=== PATIENT | male | born 1960 | race Hispanic/Latino ===

== ENCOUNTER 2017-03-01 06:39 | Inpatient (IN) | payer OTHER ==
[2017-03-01 07:43] LABS: Basophils % (Auto) 0.5 % (0.0-1.8); Eosinophils % (Auto) 1.8 % (0.0-4.3); Hematocrit 45.1 % (35.5-45.6); Hemoglobin 15.4 gm/dl (11.8-15.2); Mean Corpuscular HGB Conc 34 % (32-34); Mean Corpuscular Hemoglobin 29 pg (28-32); Mean Corpuscular Volume 84 fl (84-94); Platelet Count 236 K/mm3 (140-440); Red Blood Count 5.37 M/mm3 (3.65-5.03); Red Cell Distribution Width 12.8 % (13.2-15.2); White Blood Count 11.1 K/mm3 (4.5-11.0)
[2017-03-01 07:50] LABS: Anion Gap 19 mmol/L; BUN/Creatinine Ratio 23; Blood Urea Nitrogen 21 mg/dL (9-20); Calcium 9.1 mg/dL (8.4-10.2); Carbon Dioxide 24 mmol/L (22-30); Chloride 98.7 mmol/L (98-107); Glucose 124 mg/dL (75-100); Potassium 4.2 mmol/L (3.6-5.0); Sodium 137 mmol/L (137-145)
[2017-03-01] MEDS ORDERED: BENADRYL IV ONE (11:00)
[2017-03-01] MEDS ORDERED: REGLAN IV ONE (11:00)
[2017-03-01] MEDS ORDERED: TORADOL IV ONE (11:00)
--- NOTE | 2017-03-01 11:05 | Emergency Department Report ---
ED Syncope HPI - General Chief Complaint: Chest Pain Stated Complaint: CP Time Seen by Provider: 03/01/17 10:46 Source: patient, old records (no previous record for review) Exam Limitations: no limitations - History of Present Illness Initial Comments: 56-year-old male with a past history of migraines, GERD, hypertension, previous cholecystectomy presents to hospital status post chest pain and syncopal episodes. Patient states he had just loaded up his car at a hotel and while walking back inside he began to have chest pressure and felt lightheaded. Patient then passed out and woke up with more significant left-sided twisting chest pain. Positive associated shortness of breath and diaphoresis without nausea or vomiting. Patient also woke up with a left-sided headache which she states is typical of his previous migraines. No focal weakness, numbness, or abdominal pain reported. Patient received aspirin 324 mg given by EMS prior to arrival. 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 Last stress test was approximately 5 years ago. Denies family history of CAD. Occasional cigar/ pipe use reported. Last long-distance travel from [place] reported in December. No calf tenderness or edema reported. Patient lives in [facility]. Patient does not have a local PMD - Related Data Allergies/Adverse Reactions: Allergies No Known Allergies Allergy (Unverified 03/01/17 06:58) Home Medications: Ambulatory Orders Propranolol 75 mg PO DAILY 03/01/17 ED Review of Systems ROS: Stated complaint: CP Other details as noted in HPI Comment: All other systems reviewed and negative Other: Constitutional: No fevers chills or weight loss Eyes: No eye pain visual changes or discharge ENT: No ear pain or throat pain Neck: Denies pain Respiratory: Denies cough wheezing Cardiovascular: As per HPI GI: Denies abdominal pain, nausea, vomiting, diarrhea : Denies dysuria Musculoskeletal: Denies back pain Skin: Denies rash, lesions, erythema Neurologic: Denies headache, numbness, weakness Psychiatric: Denies suicidal ideation, hallucinations ED Past Medical Hx - Past Medical History Hx Hypertension: Yes Hx GERD: Yes Hx Headaches / Migraines: Yes - Surgical History Hx Cholecystectomy: Yes - Social History Smoking Status: Current Every Day Smoker Substance Use Type: None - Medications Home Medications: Home Medications Medication Instructions Recorded Confirmed Last Taken Type Propranolol 75 mg PO DAILY 03/01/17 03/01/17 Unknown History ED Physical Exam - General Limitations: No Limitations - Other Other exam information: General: No limitations, patient is alert in no acute distress Head exam: Atraumatic, normocephalic Eyes exam: Normal appearance, pupils equal reactive to light, extraocular movements intact ENT: Moist mucous membrane, normal oropharynx Neck exam: Normal inspection, full range of motion, no meningismus nontender Respiratory exam: Clear to auscultation bilateral, no wheezes, rales, crackles Cardiovascular: Normal rate and rhythm, normal heart sounds, mild tenderness to lower left chest wall on palpation Abdomen: Soft, nondistended, and nontender, with normal bowel sounds, no rebound, or guarding Extremity: Full range of motion normal inspection no deformity, no calf tenderness or edema Back: Normal Inspection, full range of motion, no tenderness Neurologic: Alert, oriented x3, cranial nerves intact, no motor or sensory deficit Psychiatric: normal affect, normal mood Skin: Warm, dry, intact ED Course Vital Signs 03/01/17 03/01/17 03/01/17 06:49 10:08 10:57 Temperature 98 F 97.4 F L 98.1 F Pulse Rate 92 H 78 64 Respiratory 18 16 18 Rate Blood Pressure 180/109 172/102 Blood Pressure 164/93 [Left] O2 Sat by Pulse 96 78 L 98 Oximetry - Reevaluation(s) Reevaluation #1: 03/01/17 12:59 Positive orthostatic vital signs. 500 mL of normal saline initiated. Patient was treated with Reglan, Toradol, and Benadryl for migraine headache ED Medical Decision Making - Lab Data Result diagrams: 03/01/17 07:04 03/01/17 07:04 Lab Results 03/01/17 03/01/17 03/01/17 Range/Units 07:04 07:04 09:44 WBC 11.1 H (4.5-11.0) K/mm3 RBC 5.37 H (3.65-5.03) M/mm3 Hgb 15.4 H (11.8-15.2) gm/dl Hct 45.1 (35.5-45.6) % MCV 84 (84-94) fl MCH 29 (28-32) pg MCHC 34 (32-34) % RDW 12.8 L (13.2-15.2) % Plt Count 236 (140-440) K/mm3 Lymph % (Auto) 16.1 (13.4-35.0) % [place] % (Auto) 6.5 (0.0-7.3) % Eos % (Auto) 1.8 (0.0-4.3) % Baso % (Auto) 0.5 (0.0-1.8) % Lymph # 1.8 (1.2-5.4) K/mm3 [place] # 0.7 (0.0-0.8) K/mm3 Eos # 0.2 (0.0-0.4) K/mm3 Baso # 0.1 (0.0-0.1) K/mm3 Seg Neutrophils % 75.1 H (40.0-70.0) % Seg Neutrophils # 8.3 H (1.8-7.7) K/mm3 PT (12.2-14.9) Sec. INR (0.87-1.13) D-Dimer (0-234) ng/mlDDU Sodium 137 (137-145) mmol/L Potassium 4.2 (3.6-5.0) mmol/L Chloride 98.7 (98-107) mmol/L Carbon Dioxide 24 (22-30) mmol/L Anion Gap 19 mmol/L BUN 21 H (9-20) mg/dL Creatinine 0.9 (0.8-1.5) mg/dL Estimated GFR > 60 ml/min BUN/Creatinine Ratio 23 % Glucose 124 H (75-100) mg/dL Calcium 9.1 (8.4-10.2) mg/dL Troponin T < 0.010 < 0.010 (0.00-0.029) ng/mL 03/01/17 03/01/17 Range/Units 11:04 11:04 WBC (4.5-11.0) K/mm3 RBC (3.65-5.03) M/mm3 Hgb (11.8-15.2) gm/dl Hct (35.5-45.6) % MCV (84-94) fl MCH (28-32) pg MCHC (32-34) % RDW (13.2-15.2) % Plt Count (140-440) K/mm3 Lymph % (Auto) (13.4-35.0) % [place] % (Auto) (0.0-7.3) % Eos % (Auto) (0.0-4.3) % Baso % (Auto) (0.0-1.8) % Lymph # (1.2-5.4) K/mm3 [place] # (0.0-0.8) K/mm3 Eos # (0.0-0.4) K/mm3 Baso # (0.0-0.1) K/mm3 Seg Neutrophils % (40.0-70.0) % Seg Neutrophils # (1.8-7.7) K/mm3 PT 13.4 (12.2-14.9) Sec. INR 0.97 (0.87-1.13) D-Dimer 149.14 (0-234) ng/mlDDU Sodium (137-145) mmol/L Potassium (3.6-5.0) mmol/L Chloride (98-107) mmol/L Carbon Dioxide (22-30) mmol/L Anion Gap mmol/L BUN (9-20) mg/dL Creatinine (0.8-1.5) mg/dL Estimated GFR ml/min BUN/Creatinine Ratio % Glucose (75-100) mg/dL Calcium (8.4-10.2) mg/dL Troponin T (0.00-0.029) ng/mL - EKG Data -: EKG Interpreted by Me (inferior q waves) EKG shows normal: sinus rhythm, axis (-53), QRS complexes (85), ST-T waves (lat t wave upright) Rate: normal (89) - EKG Data When compared to previous EKG there are: previous EKG unavailable 03/01/17 11:06 Repeat EKG performed at 10:02 AM shows sinus rhythm rate 60 to wear lateral T- wave inversions. Other parts of EKG unchanged - Radiology Data Radiology results: report reviewed CT head: No acute findings Chest x-ray: No acute findings - Medical Decision Making D-dimer negative. No symptoms of DVT. CT head unremarkable. Patient be admitted and monitoring of syncope with associated chest pain. Patient has some mild EKG changes on repeat EKG compared to initial EKG obtained in the ED. Troponin negative 2 - Differential Diagnosis unstable angina, PE, NM, ICH, dehydration, migraine Critical Care Time: No Critical care attestation.: If time is entered above; I have spent that time in minutes in the direct care of this critically ill patient, excluding procedure time. ED Disposition Clinical Impression: Syncope, Chest pain, Migraine, Acute electrocardiogram changes Disposition: OP ADMIT IP TO THIS HOSP Is pt being admited?: Yes Condition: Stable Instructions: Syncope (ED) Time of Disposition: 13:02 (Dr. Arenas/hospitalist)
--- NOTE | 2017-03-01 11:48 | Cat Scan Report ---
CT HEAD WITHOUT CONTRAST: 03/01/17 06:39:00 CLINICAL: Headache and syncope. TECHNIQUE: 2.5-mm noncontrast scans. COMPARISON:None FINDINGS: The ventricles and sulci are normal for age. No abnormal density. No mass or mass effect. No hemorrhage, edema or extra-axial collection. The sinuses are clear. Normal orbits and soft tissues. The calvarium and skull base are intact. IMPRESSION: Normal head CT.
[2017-03-01 12:34] LABS: INR 0.97 (0.87-1.13)
[2017-03-01] MEDS ORDERED: NACL 0.9% 500 ML 500 ML IV ONE (12:59)
--- NOTE | 2017-03-01 13:17 | XRay Report ---
AP CHEST : 03/01/17 06:39:00 CLINICAL: Chest pain. COMPARISON:None FINDINGS: Normal heart and pulmonary vessels. The lungs are normally expanded and clear. The bones and soft tissues are unremarkable. IMPRESSION: Normal chest.
--- NOTE | 2017-03-01 20:53 | History and Physical Report ---
History of Present Illness Date of examination: 03/01/17 Date of admission: 03/01/17 13:36 Chief complaint: CC Passed out at 6 am History of present illness: History of Present Illness 56-year-old male with a past history of migraines, GERD, hypertension, previous cholecystectomy presents to hospital status post chest pain and syncopal episodes. Patient states he had just loaded up his car at a hotel and while walking back inside he began to have chest pressure and felt lightheaded. Patient then passed out and woke up with more significant left-sided twisting chest pain. Positive associated shortness of breath and diaphoresis without nausea or vomiting. Patient also woke up with a left-sided headache which he states is typical of his previous migraines. No focal weakness, numbness, or abdominal pain reported. Patient received aspirin 324 mg given by EMS prior to arrival. 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 Last stress test was approximately 5 years ago. Denies family history of CAD. Occasional cigar/ pipe use reported. Last long-distance travel from [place] reported in December. No calf tenderness or edema reported. Patient lives in [facility]. Patient does not have a local PMD Past Medical History Hx Hypertension: Yes Hx GERD: Yes Hx Headaches / Migraines: Yes -Surgical History Hx Cholecystectomy: Yes - Social History Smoking Status: Current Every Day Smoker Substance Use Type: None Fam Hx HTN - Medications Home Medications: Home Medications Medication Instructions Recorded Confirmed Last Taken Type Propranolol 75 mg PO DAILY 03/01/17 03/01/17 Unknown History Review of Systems Stated complaint: CP Other details as noted in HPI Comment: All other systems reviewed and negative Other: Constitutional: No fevers chills or weight loss Eyes: No eye pain visual changes or discharge ENT: No ear pain or throat pain Neck: Denies pain Respiratory: Denies cough wheezing Cardiovascular: As per HPI GI: Denies abdominal pain, nausea, vomiting, diarrhea : Denies dysuria Musculoskeletal: Denies back pain Skin: Denies rash, lesions, erythema Neurologic: Denies headache, numbness, weakness Psychiatric: Denies suicidal ideation, hallucinations Medications and Allergies Allergies Allergy/AdvReac Type Severity Reaction Status Date / Time No Known Allergies Allergy Verified 03/01/17 20:56 Home Medications Medication Instructions Recorded Confirmed Last Taken Type Omeprazole Magnesium [PriLOSEC Otc] 1 tab PO DAILY 03/01/17 03/01/17 03/01/17 History Propranolol 80 mg PO DAILY 03/01/17 03/01/17 Unknown History Venlafaxine [Effexor 37.5mg tab] 37.5 mg PO QDAY 03/01/17 03/01/17 02/28/17 21: 00 History Exam - Constitutional Vitals: Temp Pulse Resp BP Pulse Ox 98.7 F 75 20 136/78 96 03/01/17 20:36 03/01/17 20:37 03/01/17 20:36 03/01/17 20:36 03/01/17 20:37 General appearance: Present: no acute distress, well-nourished - EENT Eyes: Present: PERRL ENT: hearing intact, clear oral mucosa - Neck Neck: Present: supple, normal ROM - Respiratory Respiratory effort: normal Respiratory: bilateral: CTA - Cardiovascular Heart rate: 80 Rhythm: regular Heart Sounds: Present: S1 & S2. Absent: rub, click - Extremities Extremities: no ischemia, pulses intact, pulses symmetrical, No edema Peripheral Pulses: within normal limits - Abdominal General gastrointestinal: Present: soft, non-tender, non-distended, normal bowel sounds Male genitourinary: Present: normal - Rectal Rectal Exam: deferred - Integumentary Integumentary: Present: clear, warm, dry - Musculoskeletal Musculoskeletal: gait normal, strength equal bilaterally - Psychiatric Psychiatric: appropriate mood/affect, intact judgment & insight - Neurologic Neurologic: CNII-XII intact, moves all extremities - Allied Health Allied health notes reviewed: nursing, case management Results - Labs CBC & Chem 7: 03/02/17 04:43 03/02/17 04:43 Labs: Laboratory Last Values WBC 11.1 K/mm3 (4.5-11.0) H 03/01/17 07:04 RBC 5.37 M/mm3 (3.65-5.03) H 03/01/17 07:04 Hgb 15.4 gm/dl (11.8-15.2) H 03/01/17 07:04 Hct 45.1 % (35.5-45.6) 03/01/17 07:04 MCV 84 fl (84-94) 03/01/17 07:04 MCH 29 pg (28-32) 03/01/17 07:04 MCHC 34 % (32-34) 03/01/17 07:04 RDW 12.8 % (13.2-15.2) L 03/01/17 07:04 Plt Count 236 K/mm3 (140-440) 03/01/17 07:04 Lymph % (Auto) 16.1 % (13.4-35.0) 03/01/17 07:04 [place] % (Auto) 6.5 % (0.0-7.3) 03/01/17 07:04 Eos % (Auto) 1.8 % (0.0-4.3) 03/01/17 07:04 Baso % (Auto) 0.5 % (0.0-1.8) 03/01/17 07:04 Lymph # 1.8 K/mm3 (1.2-5.4) 03/01/17 07:04 [place] # 0.7 K/mm3 (0.0-0.8) 03/01/17 07:04 Eos # 0.2 K/mm3 (0.0-0.4) 03/01/17 07:04 Baso # 0.1 K/mm3 (0.0-0.1) 03/01/17 07:04 Seg Neutrophils % 75.1 % (40.0-70.0) H 03/01/17 07:04 Seg Neutrophils # 8.3 K/mm3 (1.8-7.7) H 03/01/17 07:04 PT 13.4 Sec. (12.2-14.9) 03/01/17 11:04 INR 0.97 (0.87-1.13) 03/01/17 11:04 D-Dimer 149.14 ng/mlDDU (0-234) 03/01/17 11:04 Sodium 137 mmol/L (137-145) 03/01/17 07:04 Potassium 4.2 mmol/L (3.6-5.0) 03/01/17 07:04 Chloride 98.7 mmol/L (98-107) 03/01/17 07:04 Carbon Dioxide 24 mmol/L (22-30) 03/01/17 07:04 Anion Gap 19 mmol/L 03/01/17 07:04 BUN 21 mg/dL (9-20) H 03/01/17 07:04 Creatinine 0.9 mg/dL (0.8-1.5) 03/01/17 07:04 Estimated GFR > 60 ml/min 03/01/17 07:04 BUN/Creatinine Ratio 23 % 03/01/17 07:04 Glucose 124 mg/dL (75-100) H 03/01/17 07:04 Calcium 9.1 mg/dL (8.4-10.2) 03/01/17 07:04 Troponin T < 0.010 ng/mL (0.00-0.029) 03/01/17 12:44 Short CBC 03/01/17 03/02/17 Range/Units 07:04 04:43 WBC 11.1 H 9.1 (4.5-11.0) K/mm3 Hgb 15.4 H 14.4 (11.8-15.2) gm/dl Hct 45.1 42.5 (35.5-45.6) % Plt Count 236 203 (140-440) K/mm3 BMP 03/01/17 03/02/17 07:04 04:43 Sodium 137 143 Potassium 4.2 3.8 Chloride 98.7 103.9 Carbon Dioxide 24 24 BUN 21 H 16 Creatinine 0.9 0.9 Glucose 124 H 104 H Calcium 9.1 8.6 Cardiac Enzymes 03/01/17 03/01/17 03/01/17 Range/Units 07:04 09:44 12:44 Total Creatine Kinase (55-170) units/L CK-MB (CK-2) (0.0-4.0) ng/mL Troponin T < 0.010 < 0.010 < 0.010 (0.00-0.029) ng/mL 03/01/17 03/02/17 Range/Units 21:09 04:43 Total Creatine Kinase 226 H 199 H (55-170) units/L CK-MB (CK-2) 3.0 2.8 (0.0-4.0) ng/mL Troponin T < 0.010 < 0.010 (0.00-0.029) ng/mL Liver Function 03/02/17 Range/Units 04:43 Total Bilirubin 0.30 (0.1-1.2) mg/dL AST 19 (5-40) units/L ALT 17 (7-56) units/L Alkaline Phosphatase 66 (35-129) units/L Albumin 4.0 (3.9-5) g/dL - Imaging and Cardiology EKG: report reviewed (89/min NSR old inf infarct.) Chest x-ray: report reviewed (NAF) CT Scan - head: report reviewed (NAF) Assessment and Plan Advance Directives: Yes (Full code) VTE prophylaxis?: Chemical Plan of care discussed with patient/family: Yes - Patient Problems (1) Syncope Current Visit: Yes Status: Acute Qualifiers: Syncope type: unspecified Qualified Code(s): R55 - Syncope and collapse Plan to address problem: prob sec to volume depletion. IV fluids. Syncope w/u Check CDS and Lexiscan (2) Chest pain Current Visit: Yes Status: Acute Qualifiers: Chest pain type: unspecified Qualified Code(s): R07.9 - Chest pain, unspecified Plan to address problem: Chest pain w/u Lexiscan and Cardiac enzymes ordered No chest wall tenderness.Has hx of GERD (3) Migraine Current Visit: Yes Status: Acute Qualifiers: Migraine type: with aura Intractability: intractable Plan to address problem: Symptomatic treatment (4) HTN (hypertension) Current Visit: Yes Status: Chronic Qualifiers: Hypertension type: essential hypertension Qualified Code(s): I10 - Essential (primary) hypertension Plan to address problem: Cont Propranolol (5) GERD (gastroesophageal reflux disease) Current Visit: Yes Status: Chronic Qualifiers: Esophagitis presence: without esophagitis Qualified Code(s): K21.9 - Gastro -esophageal reflux disease without esophagitis Plan to address problem: Cont PPI's (6) Depression Current Visit: Yes Status: Chronic Qualifiers: Depression Type: unspecified Qualified Code(s): F32.9 - Major depressive disorder, single episode, unspecified Plan to address problem: Cont Effexor (7) DVT prophylaxis Current Visit: Yes Status: Acute Plan to address problem: on lovenox
[2017-03-01] MEDS ORDERED: MILK OF MAGNESIA PO PRN (20:54)
[2017-03-01] MEDS ORDERED: ZOFRAN IV PRN (20:54)
[2017-03-01] MEDS ORDERED: AMBIEN PO PRN (20:54)
[2017-03-01] MEDS ORDERED: DULCOLAX PR PRN (20:54)
[2017-03-01] MEDS ORDERED: MORPHINE IV PRN (20:54)
[2017-03-01] MEDS ORDERED: PERCOCET 5/325 PO PRN (20:54)
[2017-03-01] MEDS ORDERED: TYLENOL PO PRN (20:54)
[2017-03-01] MEDS ORDERED: OMEPRAZOLE MAGNESIUM PO SCH (21:00)
[2017-03-01] MEDS ORDERED: INDERAL LA PO SCH (21:00)
[2017-03-01] MEDS ORDERED: NACL 0.9% 1000 ML 1,000 ML IV SCH (21:00)
[2017-03-01] MEDS ORDERED: EFFEXOR XR PO SCH (21:00)
[2017-03-01 21:56] LABS: Creatine Kinase 226 units/L (55-170)
[2017-03-01] MEDS: LOVENOX SUB-Q SCH (22:39)
[2017-03-01] MEDS: PROTONIX PO SCH (22:39)
[2017-03-02] MEDS ORDERED: NITRO-BID 2% TP PRN (04:43)
[2017-03-02 05:31] LABS: Basophils % (Auto) 0.4 % (0.0-1.8); Eosinophils % (Auto) 3.3 % (0.0-4.3); Hematocrit 42.5 % (35.5-45.6); Hemoglobin 14.4 gm/dl (11.8-15.2); Mean Corpuscular HGB Conc 34 % (32-34); Mean Corpuscular Hemoglobin 28 pg (28-32); Mean Corpuscular Volume 84 fl (84-94); Platelet Count 203 K/mm3 (140-440); Red Blood Count 5.08 M/mm3 (3.65-5.03); Red Cell Distribution Width 13.2 % (13.2-15.2); White Blood Count 9.1 K/mm3 (4.5-11.0)
[2017-03-02 05:56] LABS: Creatine Kinase MB 2.8 ng/mL (0.0-4.0)
[2017-03-02 05:58] LABS: Alanine Aminotransferase 17 units/L (7-56); Albumin/Globulin Ratio 1.7 %; Alkaline Phosphatase 66 units/L (35-129); Anion Gap 19 mmol/L; BUN/Creatinine Ratio 18; Blood Urea Nitrogen 16 mg/dL (9-20); Calcium 8.6 mg/dL (8.4-10.2); Carbon Dioxide 24 mmol/L (22-30); Chloride 103.9 mmol/L (98-107); Glucose 104 mg/dL (75-100); Potassium 3.8 mmol/L (3.6-5.0); Sodium 143 mmol/L (137-145); Total Protein 6.3 g/dL (6.3-8.2)
[2017-03-02 06:06] LABS: Creatine Kinase 199 units/L (55-170)
[2017-03-02] MEDS ORDERED: LEXISCAN IV ONE ×2 (08:12→08:36)
[2017-03-02] MEDS ORDERED: TYLENOL ONE (09:44)
[2017-03-02] MEDS: PROTONIX PO SCH (11:36)
--- NOTE | 2017-03-02 11:38 | Consultation ---
History of Present Illness Consult date: 03/02/17 Consult reason: chest pain, syncope History of present illness: 56 YO man with h/o htn and migraine headaches. He is currently admitted with chest pain and episode of syncope. He reports he had worked [place] 2 [place]. He noticed some intermittent chest pain and had more pain yesterday morning and then had a brief syncopal episode. He thinks he may have also been dehydrated at the time as he had not eaten or drank much the day before. He describes the pain as a pressure type of sensation in his left chest with associated dyspnea and diaphoresis. EKG reveals NSR with possible prior inferior SC He had MPI done today which preliminarily reveals small but reversible anterior perfusion defect. Past History Past Medical History: hypertension, migraines Past Surgical History: cholecystectomy Social history: smoking (smokes 1 cigar per week) Family history: denies: no significant family history Medications and Allergies Allergies Allergy/AdvReac Type Severity Reaction Status Date / Time No Known Allergies Allergy Verified 03/01/17 20:56 Home Medications Medication Instructions Recorded Confirmed Last Taken Type Omeprazole Magnesium [PriLOSEC Otc] 1 tab PO DAILY 03/01/17 03/01/17 03/01/17 History Propranolol 80 mg PO DAILY 03/01/17 03/01/17 Unknown History Venlafaxine [Effexor 37.5mg tab] 37.5 mg PO QDAY 03/01/17 03/01/17 02/28/17 21: 00 History Active Meds: Active Medications Acetaminophen (Tylenol) 650 mg PO Q4H PRN PRN Reason: Pain MILD(1-3)/Fever >100.5/FELIX Last Admin: 03/02/17 09:45 Dose: 650 mg Bisacodyl (Dulcolax) 10 mg OR QDAY PRN PRN Reason: Constipation unrelieved by MOM Enoxaparin Sodium (Lovenox) 40 mg SUB-Q QDAY@2200 GEORGE Last Admin: 03/01/17 22:39 Dose: 40 mg Sodium Chloride (Nacl 0.9% 1000 Ml) 1,000 mls @ 75 mls/hr IV DIRECT GEORGE Magnesium Hydroxide (Milk Of Magnesia) 30 ml PO Q4H PRN PRN Reason: Constipation Morphine Sulfate (Morphine) 4 mg IV Q4H PRN PRN Reason: Pain , Severe (7-10) Nitroglycerin (Nitro-Bid 2%) 1 inch TP Q6H PRN; Protocol PRN Reason: Hypertension Last Admin: 03/02/17 04:55 Dose: 1 inch Ondansetron HCl (Zofran) 4 mg IV Q8H PRN PRN Reason: N/V unrelieved by Reglan Oxycodone/Acetaminophen (Percocet 5/325) 1 tab PO Q6H PRN PRN Reason: Pain, Moderate (4-6) Pantoprazole Sodium (Protonix) 20 mg PO QDAY GEORGE Last Admin: 03/01/17 22:39 Dose: 20 mg Propranolol HCl (Inderal La) 80 mg PO QHS GEORGE Venlafaxine HCl (Effexor Xr) 37.5 mg PO QHS GEORGE Zolpidem Tartrate (Ambien) 5 mg PO QHS PRN PRN Reason: Insomnia Physical Examination Vital Signs Temp Pulse Resp BP Pulse Ox 98 F 92 H 18 180/109 96 03/01/17 06:49 03/01/17 06:49 03/01/17 06:49 03/01/17 06:49 03/01/17 06:49 General appearance: no acute distress HEENT: Positive: PERRL, EOMI Neck: Positive: neck supple, trachea midline Cardiac: Positive: Reg Rate and Rhythm Lungs: Positive: clear to auscultation, Normal Breath Sounds Abdomen: Positive: Soft, Active Bowel Sounds Extremities: Absent: edema Results 03/02/17 04:43 03/02/17 04:43 Cardiac Enzymes 03/01/17 03/02/17 03/02/17 Range/Units 21:09 04:43 04:43 AST 19 (5-40) units/L CK-MB (CK-2) 3.0 2.8 (0.0-4.0) ng/mL Coagulation 03/01/17 Range/Units 11:04 PT 13.4 (12.2-14.9) Sec. INR 0.97 (0.87-1.13) CBC 03/02/17 Range/Units 04:43 WBC 9.1 (4.5-11.0) K/mm3 RBC 5.08 H (3.65-5.03) M/mm3 Hgb 14.4 (11.8-15.2) gm/dl Hct 42.5 (35.5-45.6) % Plt Count 203 (140-440) K/mm3 Lymph # 2.3 (1.2-5.4) K/mm3 [place] # 0.8 (0.0-0.8) K/mm3 Eos # 0.3 (0.0-0.4) K/mm3 Baso # 0.0 (0.0-0.1) K/mm3 Comprehensive Metabolic Panel 03/02/17 Range/Units 04:43 Sodium 143 (137-145) mmol/L Potassium 3.8 (3.6-5.0) mmol/L Chloride 103.9 (98-107) mmol/L Carbon Dioxide 24 (22-30) mmol/L BUN 16 (9-20) mg/dL Creatinine 0.9 (0.8-1.5) mg/dL Glucose 104 H (75-100) mg/dL Calcium 8.6 (8.4-10.2) mg/dL AST 19 (5-40) units/L ALT 17 (7-56) units/L Alkaline Phosphatase 66 (35-129) units/L Total Protein 6.3 (6.3-8.2) g/dL Albumin 4.0 (3.9-5) g/dL Assessment and Plan Syncope Chest pain suggestive of angina and abnormal MPI today. Htn Recommend: Left heart cath in AM Check Echocardiogram.
[2017-03-02] MEDS ORDERED: NACL 0.9% 500 ML 500 ML IV SCH (12:00)
[2017-03-02 14:50] LABS: Creatine Kinase MB 2.8 ng/mL (0.0-4.0)
[2017-03-02 14:51] LABS: Creatine Kinase 190 units/L (55-170)
--- NOTE | 2017-03-02 16:27 | Progress Note ---
Assessment and Plan Patient Problems (1) Syncope Current Visit: Yes Status: Acute Qualifiers: Syncope type: unspecified Qualified Code(s): R55 - Syncope and collapse Plan to address problem: prob sec to volume depletion. IV fluids. Syncope w/u (2) Chest pain Current Visit: Yes Status: Acute Qualifiers: Chest pain type: unspecified Qualified Code(s): R07.9 - Chest pain, unspecified Plan to address problem: Chest pain w/u Lexiscan stress showed reversible defect. LH cardiac cath ordered. No chest wall tenderness.Has hx of GERD (3) Migraine Current Visit: Yes Status: Acute Qualifiers: Migraine type: with aura Intractability: intractable Plan to address problem: Symptomatic treatment (4) HTN (hypertension) Current Visit: Yes Status: Chronic Qualifiers: Hypertension type: essential hypertension Qualified Code(s): I10 - Essential (primary) hypertension Plan to address problem: Cont Propranolol (5) GERD (gastroesophageal reflux disease) Current Visit: Yes Status: Chronic Qualifiers: Esophagitis presence: without esophagitis Qualified Code(s): K21.9 - Gastro -esophageal reflux disease without esophagitis Plan to address problem: Cont PPI's (6) Depression Current Visit: Yes Status: Chronic Qualifiers: Depression Type: unspecified Qualified Code(s): F32.9 - Major depressive disorder, single episode, unspecified Plan to address problem: Cont Effexor (7) DVT prophylaxis Current Visit: Yes Status: Acute Plan to address problem: on lovenox Subjective Date of service: 03/02/17 Principal diagnosis: Atypical chest pain, Autonomic dysfunction Interval history: No more chest pain or syncope Objective - Constitutional Vitals: Vital Signs - 12hr 03/02/17 03/02/17 03/02/17 04:35 04:55 06:07 Temperature 97.9 F Pulse Rate 57 L 60 Respiratory 18 Rate Blood Pressure 145/102 145/102 136/91 Blood Pressure [Left] O2 Sat by Pulse 97 Oximetry 03/02/17 03/02/17 03/02/17 09:16 09:32 09:33 Temperature Pulse Rate 55 L 65 78 Respiratory Rate Blood Pressure 164/97 148/88 162/93 Blood Pressure [Left] O2 Sat by Pulse Oximetry 03/02/17 03/02/17 03/02/17 09:34 09:35 09:36 Temperature Pulse Rate 74 74 66 Respiratory Rate Blood Pressure 152/91 179/104 173/107 Blood Pressure [Left] O2 Sat by Pulse Oximetry 03/02/17 03/02/17 03/02/17 09:37 09:45 11:55 Temperature 97.3 F L Pulse Rate 75 62 Respiratory 18 18 Rate Blood Pressure 167/100 Blood Pressure 155/97 [Left] O2 Sat by Pulse 100 Oximetry 03/02/17 13:00 Temperature Pulse Rate 57 L Respiratory Rate Blood Pressure Blood Pressure [Left] O2 Sat by Pulse Oximetry General appearance: Present: no acute distress, well-nourished - EENT Eyes: PERRL, EOM intact Ears: bilateral: normal - Neck Neck: supple, normal ROM - Respiratory Respiratory effort: normal Respiratory: bilateral: CTA - Breasts Breasts: normal - Cardiovascular Rhythm: regular Heart Sounds: Present: S1 & S2. Absent: gallop, rub Extremities: pulses intact, No edema, normal color, Full ROM - Gastrointestinal General gastrointestinal: Present: soft, non-tender, non-distended, normal bowel sounds - Integumentary Integumentary: clear, warm, dry - Musculoskeletal Musculoskeletal: 1, strength equal bilaterally - Neurologic Neurologic: moves all extremities - Psychiatric Psychiatric: memory intact, appropriate mood/affect, intact judgment & insight - Labs CBC & Chem 7: 03/02/17 04:43 03/02/17 04:43 Labs: Abnormal lab results 03/01/17 03/02/17 03/02/17 Range/Units 21:09 04:43 04:43 RBC 5.08 H (3.65-5.03) M/mm3 [place] % (Auto) 9.1 H (0.0-7.3) % Glucose 104 H (75-100) mg/dL Total Creatine Kinase 226 H (55-170) units/L 03/02/17 03/02/17 Range/Units 04:43 14:07 RBC (3.65-5.03) M/mm3 [place] % (Auto) (0.0-7.3) % Glucose (75-100) mg/dL Total Creatine Kinase 199 H 190 H (55-170) units/L
[2017-03-02] MEDS: LOVENOX SUB-Q SCH (21:14)
[2017-03-02] MEDS ORDERED: INDERAL LA PO SCH (22:00)
[2017-03-02] MEDS ORDERED: EFFEXOR XR PO SCH (22:00)
[2017-03-03] MEDS ORDERED: NACL 0.9% 500 ML 500 ML IV SCH (05:00)
[2017-03-03] MEDS ORDERED: NACL 0.9% 500 ML 500 ML ONE (09:09)
[2017-03-03] MEDS ORDERED: ECOTRIN PO NR (09:20)
[2017-03-03] MEDS ORDERED: XYLOCAINE 2% INFILTRATI ONE (10:38)
[2017-03-03] MEDS ORDERED: HEPARIN 10,000 UNITS/10 ML ONE (10:38)
[2017-03-03] MEDS ORDERED: NITROGLYCERIN SYRINGE 3 ML ONE (10:38)
[2017-03-03] MEDS ORDERED: HEPARIN/NS 5000 UNIT/500ML(CATH LAB) 1,000 ML IR ONE (10:38)
[2017-03-03] MEDS ORDERED: CALAN ONE (10:38)
[2017-03-03] MEDS ORDERED: SUBLIMAZE ONE (10:39)
[2017-03-03] MEDS ORDERED: VERSED ONE (10:39)
--- NOTE | 2017-03-03 11:25 | Event Note ---
Date: 03/03/17 Cardiac cath showed mild nonobstructive CAD, EF 55%. Risk factor modification recommended. Cardiac stable for discharge.
--- NOTE | 2017-03-03 11:47 | Cardiac Catherization Report ---
CARDIAC CATHETERIZATION REASON FOR PROCEDURE: Chest pain. PROCEDURE: The patient was prepped and draped in a sterile fashion after informed consent. The right radial cath site was prepped and draped after a negative Dangelo's test. The right radial artery was entered using Seldinger technique followed by placement of a 6-[place] hydrophilic sheath. Routine radial cocktail was administered via the sheath. Selective left and right coronary angiography was performed. A 3.5 left Katheryn catheter was used for left coronary angiography. A #4 right Katheryn was used for right coronary angiography. A pigtail catheter was used for left ventricle angiography. The catheters were removed, sheath removed, and hemostasis achieved using manual compression. The patient was returned to the postprocedure unit in stable condition. There were no complications. FINDINGS: HEMODYNAMICS: Left ventricle end diastolic pressure was 30 to 35, following coronary angiography. Ascending aortic pressure was 176/99. There was no significant pressure gradient on pullback across the aortic valve. CORONARY ANGIOGRAPHY: Left main coronary artery was angiographically normal. There were diffuse mild irregularities of the mid and distal segments of the LAD and diagonal branches. The circumflex artery similarly contained diffuse mild atherosclerosis in its proximal, mid, and distal segments and diffuse mild irregularities of the obtuse marginal branches. The right coronary artery was dominant. This vessel also contained mild luminal irregularities in its mid segment. Left ventricular systolic function was within normal limits, ejection fraction 55% to 60%. CONCLUSION: 1. Diffuse mild atherosclerosis, representing diffuse mild nonobstructive coronary disease. 2. Normal left ventricular systolic function, ejection fraction 55% to 60%. RECOMMENDATION: Risk factor modification and medical therapy. JOB# [id number] CA/NTS
[2017-03-03] MEDS: PROTONIX PO SCH (11:48)
[2017-03-03] MEDS ORDERED: INDERAL LA PO SCH ×2 (12:55→22:00)
[2017-03-03] MEDS ORDERED: ALDACTONE PO SCH (13:00)
[2017-03-03] MEDS ORDERED: ZESTRIL PO SCH (13:00)
[2017-03-03 15:13] VITALS: BP 146/87
--- NOTE | 2017-03-03 16:47 | Progress Note ---
Assessment and Plan Chest pain: Had cardiac catheter that showed mild nonobstructive CAD with ejection fraction of 55%. ASA, statin and beta-luke. Syncopelikely secondary to volume depletion: Resolved. Hypertension: On antihypertensive meds. Migraine headache: Symptomatic treatment. GERD: On PPIs. Depression: On Effexor. DVT prophylaxis with Lovenox. Subjective Date of service: 03/03/17 Principal diagnosis: Atypical chest pain, Autonomic dysfunction Interval history: No more chest pain or syncope. Had cardiac cath that showed mild nonobstructive CAD with ejection fraction of 55% Objective - Constitutional Vitals: Vital Signs - 12hr 03/03/17 03/03/17 03/03/17 05:31 07:10 08:16 Temperature 97.7 F 98.5 F 98.5 F Pulse Rate 58 L 60 58 L Respiratory 18 20 20 Rate Blood Pressure 172/96 149/92 Blood Pressure 149/92 [Left] O2 Sat by Pulse 97 97 97 Oximetry 03/03/17 03/03/17 03/03/17 09:01 11:39 11:43 Temperature 98.4 F Pulse Rate 60 56 L 54 L Respiratory 18 16 Rate Blood Pressure 186/95 186/95 Blood Pressure 153/102 [Left] O2 Sat by Pulse 97 97 96 Oximetry 03/03/17 03/03/17 03/03/17 11:46 12:00 12:16 Temperature Pulse Rate 54 L 71 54 L Respiratory Rate Blood Pressure 172/96 178/125 173/84 Blood Pressure [Left] O2 Sat by Pulse 94 98 96 Oximetry 03/03/17 03/03/17 03/03/17 12:31 13:01 13:30 Temperature Pulse Rate 56 L 67 58 L Respiratory Rate Blood Pressure 189/97 168/86 163/93 Blood Pressure [Left] O2 Sat by Pulse 99 95 96 Oximetry 03/03/17 03/03/17 03/03/17 14:01 14:30 15:11 Temperature 97.8 F Pulse Rate 61 55 L 61 Respiratory 18 Rate Blood Pressure 146/87 143/95 Blood Pressure 146/87 [Left] O2 Sat by Pulse 93 96 95 Oximetry General appearance: Present: no acute distress, well-nourished - EENT Eyes: PERRL, EOM intact ENT: hearing intact, clear oral mucosa Ears: bilateral: normal - Neck Neck: supple, normal ROM - Respiratory Respiratory effort: normal Respiratory: bilateral: CTA - Breasts Breasts: normal - Cardiovascular Rhythm: regular Heart Sounds: Present: S1 & S2. Absent: gallop, rub Extremities: pulses intact, No edema, normal color, Full ROM - Gastrointestinal General gastrointestinal: Present: soft, non-tender, non-distended, normal bowel sounds - Genitourinary Male genitourinary: normal - Integumentary Integumentary: clear, warm, dry - Musculoskeletal Musculoskeletal: 1, strength equal bilaterally - Neurologic Neurologic: moves all extremities - Psychiatric Psychiatric: memory intact, appropriate mood/affect, intact judgment & insight - Labs CBC & Chem 7: 03/02/17 04:43 03/02/17 04:43
--- NOTE | 2017-03-03 18:21 | Discharge Summary ---
Providers - Providers Date of Admission: 03/01/17 13:36 Date of discharge: 03/03/17 Attending physician: PADMINI SERVIN 03/01/17 20:54 Consult to Physician [CONS] Routine Consulting Provider: SUZI LOWE Reason For Exam: Chest pain Place consult to:: Dr. Lowe Notified:: Shahida PARSONS Phone number called:: [phone] Was contact made?: Yes If yes, spoke with:: [facility]wering service Time called:: 08:08 03/03/17 11:26 Consult to Cardiac Rehabilitation [CONS] Routine Reason For Exam: Cardiac Rehab Evaluation Primary care physician: REMEDY DEVELOPER Hospitalization Reason for admission: Chest pain, Abnormal EKG Condition: Stable Pertinent studies: EKG, ECHO showed LVEF of 60-65% with normal ventricular functions. Stress thallium that showed reversible ant. wall defect. Cardiac cath was done. Coronary arteries were normal. Procedures: cardiac cath. showed normal coronaries Hospital course: 56-year-old male with a past history of migraines, GERD, hypertension, previous cholecystectomy presents to hospital status post chest pain and syncopal episodes. Patient states he had just loaded up his car at a hotel and while walking back inside he began to have chest pressure and felt lightheaded. Patient then passed out and woke up with more significant left-sided twisting chest pain. Had associated shortness of breath and diaphoresis without nausea or vomiting. Patient also woke up with a left-sided headache which he states is typical of his previous migraines. No focal weakness, numbness, or abdominal pain reported. Patient received aspirin 324 mg given by EMS prior to arrival. [place] and had very little to eat or drink and thinks he might be dehydrated. Last stress test was approximately 5 years ago. Denies family history of CAD. Occasional cigar/ pipe use reported. Last long-distance travel from [place] reported in December. No calf tenderness or edema reported. Patient lives in [facility]. Patient does not have a local PMD. On admission he was commence on oxygen, ASA, morphine and continued on beta luke. EKG showed old ant. wall ischemia. Stress thallium showed reversible ant. Wall defect. Cardiac cath was done. Both coronary arteries were normal. Chest pain resolved. Had elevated BP which was controlled. Pt is therefore being discharged today to follow up with [facility] COORD[facility]ATOR in 3-5 days Disposition: DC-01 TO HOME OR SELFCARE Time spent for discharge: 32 mins Core Measure Documentation - Palliative Care Palliative Care/ Comfort Measures: Not Applicable - Core Measures Any of the following diagnoses?: none Exam - Constitutional Vitals: Temp Pulse Resp BP Pulse Ox 97.8 F 61 18 146/87 95 03/03/17 15:11 03/03/17 15:11 03/03/17 15:11 03/03/17 15:11 03/03/17 15:11 General appearance: Present: no acute distress, well-nourished - EENT Eyes: Present: PERRL - Neck Neck: Present: supple, normal ROM - Respiratory Respiratory effort: normal Respiratory: bilateral: CTA - Cardiovascular Heart Sounds: Present: S1 & S2. Absent: rub, click - Extremities Extremities: pulses symmetrical, No edema Peripheral Pulses: within normal limits - Abdominal General gastrointestinal: Present: soft, non-tender, non-distended, normal bowel sounds - Integumentary Integumentary: Present: clear, warm, dry - Musculoskeletal Musculoskeletal: gait normal, strength equal bilaterally - Psychiatric Psychiatric: appropriate mood/affect, intact judgment & insight - Neurologic Neurologic: CNII-XII intact, moves all extremities Plan Activity: advance as tolerated Weight Bearing Status: Weight Bear as Tolerated Diet: low cholesterol Follow up with: PRIMARY CARE, [Primary Care Provider] - 3 Days Prescriptions: Aspirin 81 mg PO DAILY #30 tab.chew Atorvastatin [Lipitor] 20 mg PO QHS #30 tab Lisinopril [Zestril TAB] 40 mg PO QDAY #30 tablet Lisinopril [Zestril TAB] 40 mg PO QDAY #30 tablet Propranolol LA [Inderal LA] 120 mg PO QDAY #30 cap.sa.24h Propranolol LA [Inderal LA] 120 mg PO QHS #30 capsule Venlafaxine [Effexor 37.5mg tab] 37.5 mg PO QDAY #30 tablet
--- NOTE | 2017-03-05 05:56 | Treadmill Report ---
THALLIUM STRESS TEST LEFT VENTRICLE: Left ventricular chamber size is within normal spread. Perfusion study demonstrates a small reversible basal inferior defect. On the resting study, there is a minimal degree of ischemia. Gated analysis demonstrates normal left ventricular systolic function with ejection fraction calculated at 71%. CONCLUSION: Abnormal perfusion study, demonstrating a small reversible basal inferior ischemia. Clinical correlation is recommended. JOB# [id number] CA/NTS
== END 2017-03-03 19:00 | disposition home or self-care (01) | DRG 287 ==
LOC: ED 06:39 → 4A 13:36
PROVIDERS: ADMIT Internal Medicine; ATTEND Family Medicine
PROC: 4A023N7 Measurement of Cardiac Sampling and Pressure, Left Heart, Percutaneous Approach (ICD-10-PCS; principal; 2017-03-03)
PROC: B2111ZZ Fluoroscopy of Multiple Coronary Arteries using Low Osmolar Contrast (ICD-10-PCS; 2017-03-03)
PROC: B2151ZZ Fluoroscopy of Left Heart using Low Osmolar Contrast (ICD-10-PCS; 2017-03-03)
DX: R07.9 Chest pain, unspecified (principal); G43.909 Migraine, unspecified, not intractable, without status migrainosus; R55 Syncope and collapse; K21.9 Gastro-esophageal reflux disease without esophagitis; I10 Essential (primary) hypertension; F17.200 Nicotine dependence, unspecified, uncomplicated; F32.9 Major depressive disorder, single episode, unspecified; I25.10 Atherosclerotic heart disease of native coronary artery without angina pectoris; Z90.49 Acquired absence of other specified parts of digestive tract; Z82.49 Family history of ischemic heart disease and other diseases of the circulatory system; Z79.899 Other long term (current) drug therapy
CPT/HCPCS: 36415; 70450; 71010; 78452; 80048; 80053; 82550; 82553; 84484; 85025; 85379; 85610; 93005; 93010; 93017; 93306; 93458; 93880; 96361; 96374; 96375; A9502; C1894; J1200; J1644; J1650; J1885; J2250; J2765; J2785; J3010; J7030; J7040; Q9967